=== PATIENT | male | born 1965 | race Two or more races ===

== ENCOUNTER → 2020-05-29 | Outpatient (CLI) | payer OTHER ==
[2020-05-29 08:36] LABS: Urine WBC None Seen /hpf (0 - 3)
[2020-05-29 08:43] LABS: Basophils # (auto) 0 10 ^3/uL (0-0.2); Basophils % (auto) 0.4 % (0.0-2.0); Eosinophils # (auto) 0.1 10 ^3/uL (0-0.8); Eosinophils % (auto) 1.5 % (0.0-7.0); Hemoglobin 14.6 g/dL (13.5-17.5); Lymphocytes # (auto) 1.5 10 ^3/uL (0.4-5.4); Lymphocytes % (auto) 21.1 % (10.0-50.0); Mean Corpuscular Hgb Conc. 35.5 g/dL (32.0-36.0); Mean Corpuscular Volume 92.8 fL (80.0-100.0); Monocytes # (auto) 0.5 10 ^3/uL (0-1.3); Monocytes % (auto) 6.6 % (0.0-12.0); Neutrophils # (auto) 4.8 10 ^3/uL (1.6-8.6); Neutrophils % (auto) 70.4 % (37.0-80.0); Nucleated Red Blood Cells % 0.5 %; Platelet Count (auto) 127 10^3/uL (140-450); Red Blood Cells 4.42 10^6/uL (4.5-5.90); Red Cell Distribution Width 13.9 % (11.8-14.3); White Blood Cell 6.9 10^3/uL (4.4-10.8)
[2020-05-29 08:53] LABS: Urine Bacteria NONE SEEN /hpf (None Seen); Urine Blood Negative /uL (Negative); Urine Specific Gravity 1.019 (1.001-1.035)
[2020-05-29 09:13] LABS: Albumin 3.8 g/dL (3.4-5.0); BUN/Creatinine Ratio 22.2; Calcium 9.1 mg/dL (8.5-10.1); Potassium 4.5 mmol/L (3.5-5.1)
[2020-05-29 09:18] LABS: Bilirubin, Total 0.7 mg/dL (0.2-1.0); Total Protein 7.4 g/dL (6.4-8.2)
== END | disposition home or self-care (01) ==
LOC: LAB 08:23
PROVIDERS: ATTEND Student in an Organized Health Care Education/Training Program
DX: E11.9 Type 2 diabetes mellitus without complications (principal); Z12.11 Encounter for screening for malignant neoplasm of colon
CPT/HCPCS: 36415; 80053; 80061; 81001; 82043; 83036; 84443; 85025

== ENCOUNTER → 2021-03-04 | Outpatient (CLI) | payer OTHER ==
[2021-03-04 08:59] LABS: Basophils # (auto) 0 10 ^3/uL (0-0.2); Basophils % (auto) 0.7 % (0.0-2.0); Eosinophils # (auto) 0.1 10 ^3/uL (0-0.8); Eosinophils % (auto) 1.9 % (0.0-7.0); Hemoglobin 15.5 g/dL (13.5-17.5); Lymphocytes # (auto) 1.1 10 ^3/uL (0.4-5.4); Lymphocytes % (auto) 22.8 % (10.0-50.0); Mean Corpuscular Hemoglobin 31.6 pg (28.0-32.0); Mean Corpuscular Hgb Conc. 35.3 g/dL (32.0-36.0); Mean Corpuscular Volume 89.7 fL (80.0-100.0); Monocytes # (auto) 0.6 10 ^3/uL (0-1.3); Neutrophils # (auto) 3.1 10 ^3/uL (1.6-8.6); Neutrophils % (auto) 62.6 % (37.0-80.0); Nucleated Red Blood Cells % 0.1 %; Red Blood Cells 4.91 10^6/uL (4.5-5.90); Red Cell Distribution Width 13.1 % (11.8-14.3); White Blood Cell 4.9 10^3/uL (4.4-10.8)
[2021-03-04 09:14] LABS: Urine Bacteria NONE SEEN /hpf (None Seen); Urine Blood Negative /uL (Negative); Urine Mucus FEW (None Seen); Urine Specific Gravity 1.019 (1.001-1.035); Urine WBC <1 /hpf (0 - 3)
[2021-03-04 10:12] LABS: Albumin 3.7 g/dL (3.4-5.0); BUN/Creatinine Ratio 20.5; Bilirubin, Total 0.8 mg/dL (0.2-1.0); Calcium 9.2 mg/dL (8.5-10.1); Total Protein 6.9 g/dL (6.4-8.2)
== END | disposition home or self-care (01) ==
LOC: LAB 08:34
PROVIDERS: ATTEND Student in an Organized Health Care Education/Training Program
DX: E11.9 Type 2 diabetes mellitus without complications (principal); I10 Essential (primary) hypertension
CPT/HCPCS: 36415; 80053; 80061; 81001; 82043; 83036; 85025

== ENCOUNTER 2021-07-09 07:37 | Emergency (ER) | payer OTHER ==
[~2021-07-09] VITALS: Ht 180.3 cm; Wt 106.6 kg
[2021-07-09] MEDS ORDERED: METOCLOPRAMIDE HCL 5MG/ml INJ 2ml VIAL IV ONE (08:00)
[2021-07-09] MEDS ORDERED: SODIUM CHLORIDE 0.9% 1,000 ML IV ONE (08:00)
[2021-07-09] MEDS ORDERED: KETOROLAC TROMETH 30 MG/ML 1ML VIAL IV ONE (08:00)
[2021-07-09] MEDS ORDERED: CYCL-837 PO (10:13)
[2021-07-09] MEDS ORDERED: DEX4T PO (10:13)
[2021-07-09] MEDS ORDERED: HYDR-4902 PO (10:13)
[2021-07-09 12:51] VITALS: BP 97/45
== END 2021-07-09 13:20 | disposition home or self-care (01) ==
LOC: ER 07:37
DX: G89.29 Other chronic pain (principal); M54.59 Other low back pain; M79.10 Myalgia, unspecified site; I10 Essential (primary) hypertension; E11.9 Type 2 diabetes mellitus without complications; E78.5 Hyperlipidemia, unspecified; F17.210 Nicotine dependence, cigarettes, uncomplicated; W01.0XXA Fall on same level from slipping, tripping and stumbling without subsequent striking against object, initial encounter; Y93.89 Activity, other specified; Y92.89 Other specified places as the place of occurrence of the external cause; Y99.8 Other external cause status
CPT/HCPCS: 72100; 96361; 96374; 96375; 99285; J1885; J2765; J7030

== ENCOUNTER 2021-07-17 15:36 | Inpatient (IN) | payer OTHER ==
[~2021-07-17] VITALS: Ht 180.3 cm; Wt 111.1 kg
[~2021-07-17 15:36] MED LIST: CYCL-837 PO; DEX4T PO; HYDR-4902 PO
[2021-07-17] MEDS ORDERED: HEPARIN SODIUM (PORCINE) 5000 UNITS/ML 1ML VIAL IV ONE (18:00)
[2021-07-17 18:51] LABS: Basophils # (auto) 0 10 ^3/uL (0-0.2); Basophils % (auto) 0.2 % (0.0-2.0); Eosinophils # (auto) 0.1 10 ^3/uL (0-0.8); Eosinophils % (auto) 1.3 % (0.0-7.0); Hemoglobin 16.9 g/dL (13.5-17.5); Lymphocytes # (auto) 1.7 10 ^3/uL (0.4-5.4); Lymphocytes % (auto) 16.6 % (10.0-50.0); Mean Corpuscular Hemoglobin 32.1 pg (28.0-32.0); Mean Corpuscular Hgb Conc. 35.2 g/dL (32.0-36.0); Mean Corpuscular Volume 91.4 fL (80.0-100.0); Monocytes # (auto) 0.9 10 ^3/uL (0-1.3); Monocytes % (auto) 8.3 % (0.0-12.0); Neutrophils # (auto) 7.7 10 ^3/uL (1.6-8.6); Neutrophils % (auto) 73.6 % (37.0-80.0); Nucleated Red Blood Cells % 0.1 %; Red Blood Cells 5.25 10^6/uL (4.5-5.90); White Blood Cell 10.5 10^3/uL (4.4-10.8)
[2021-07-17 18:59] LABS: Albumin 3.4 g/dL (3.4-5.0); BUN/Creatinine Ratio 22.7; Calcium 8.7 mg/dL (8.5-10.1); Potassium 4.1 mmol/L (3.5-5.1)
[2021-07-17] MEDS ORDERED: HEPARIN DRIP/D5W 100UNITS/ML 250 ML IV SCH (19:00)
[2021-07-17 19:02] LABS: Total Protein 7.4 g/dL (6.4-8.2)
[2021-07-17 19:20] LABS: INR 1.05 (0.9-1.15); Partial Thromboplastin Time 26.2 sec (23.6-33.0)
[2021-07-17] MEDS ORDERED: SODIUM CHLORIDE 0.9% 1,000 ML IV SCH (22:00)
[2021-07-17] MEDS ORDERED: ACETAMINOPHEN 325 MG TAB PO PRN (22:00)
[2021-07-17] MEDS ORDERED: ONDANSETRON HCL 4 MG/2 ML VIAL IV PRN (22:00)
[2021-07-17] MEDS ORDERED: DOCUSATE SOD 100 MG CAP PO PRN (22:00)
[2021-07-17] MEDS: HYDROcodone-ACET 5/325MG TAB PO PRN (23:05)
[2021-07-17] MEDS ORDERED: MORPHINE SULFATE INJ 2 MG/ml SYRG IV PRN (23:45)
[2021-07-17] MEDS ORDERED: NITROGLYCERIN 0.4 MG SL TAB SL PRN (23:45)
[2021-07-18 05:24] LABS: Basophils # (auto) 0 10 ^3/uL (0-0.2); Basophils % (auto) 0.1 % (0.0-2.0); Eosinophils # (auto) 0.1 10 ^3/uL (0-0.8); Eosinophils % (auto) 1.5 % (0.0-7.0); Hematocrit 41.4 % (41.0-53.0); Hemoglobin 14.8 g/dL (13.5-17.5); Lymphocytes # (auto) 1.5 10 ^3/uL (0.4-5.4); Lymphocytes % (auto) 22.1 % (10.0-50.0); Mean Corpuscular Hemoglobin 32.2 pg (28.0-32.0); Mean Corpuscular Hgb Conc. 35.7 g/dL (32.0-36.0); Mean Corpuscular Volume 90.1 fL (80.0-100.0); Monocytes # (auto) 0.7 10 ^3/uL (0-1.3); Monocytes % (auto) 10.2 % (0.0-12.0); Neutrophils # (auto) 4.6 10 ^3/uL (1.6-8.6); Neutrophils % (auto) 66.1 % (37.0-80.0); Red Cell Distribution Width 13.8 % (11.8-14.3)
[2021-07-18 05:31] LABS: Calcium 8.1 mg/dL (8.5-10.1); Potassium 3.7 mmol/L (3.5-5.1)
[2021-07-18 05:34] LABS: BUN/Creatinine Ratio 28.1; Bilirubin, Total 0.8 mg/dL (0.2-1.0); Total Protein 6.5 g/dL (6.4-8.2)
[2021-07-18] MEDS ORDERED: DEXTROSE (50%) 50ML SYRG IV PRN (09:45)
[2021-07-18] MEDS ORDERED: HEPARIN SODIUM (PORCINE) 5000 UNITS/ML 1ML VIAL SC SCH (10:00)
[2021-07-18] MEDS: ACCU-CHEK COMFORT CURVE STRIP VI SCH ×4 (12:13→23:07)
[2021-07-18] MEDS: InsuLIN REG 1unit/0.01ml Soln (100units/ml) SC SCH ×3 (12:44→22:00)
[2021-07-18 13:00] VITALS: BP 134/86
[2021-07-18] MEDS ORDERED: APIXABAN 5 MG TAB PO SCH (15:34)
[2021-07-18 17:00] VITALS: BP 138/76
[2021-07-18] MEDS: APIXABAN 5 MG TAB PO SCH (18:34)
[2021-07-18 22:00] VITALS: BP 118/63
[2021-07-19] MEDS: HYDROcodone-ACET 5/325MG TAB PO PRN ×2 (00:49→21:57)
[2021-07-19 05:00] VITALS: BP 119/76
[2021-07-19] MEDS: APIXABAN 5 MG TAB PO SCH ×2 (06:00→17:20)
[2021-07-19 06:50] LABS: Calcium 8.7 mg/dL (8.5-10.1); Magnesium 2.5 mg/dL (1.6-2.6); Potassium 3.7 mmol/L (3.5-5.1)
[2021-07-19] MEDS: InsuLIN REG 1unit/0.01ml Soln (100units/ml) SC SCH ×4 (06:54→21:48)
[2021-07-19 06:56] LABS: BUN/Creatinine Ratio 23.1
[2021-07-19] MEDS: ACCU-CHEK COMFORT CURVE STRIP VI SCH ×4 (06:56→21:59)
[2021-07-19] MEDS ORDERED: ATOR-47 PO (07:26)
[2021-07-19] MEDS ORDERED: METF-371 PO (07:26)
[2021-07-19] MEDS ORDERED: LISI20TA28 PO (07:26)
[2021-07-19] MEDS ORDERED: GLIP5TAB12 PO (07:26)
[2021-07-19] MEDS ORDERED: ASPI-543 PO (07:27)
[2021-07-19] MEDS ORDERED: OMEG306C OR (07:27)
[2021-07-19 08:38] LABS: Basophils # (auto) 0.1 10 ^3/uL (0-0.2); Basophils % (auto) 1.2 % (0.0-2.0); Eosinophils # (auto) 0.1 10 ^3/uL (0-0.8); Eosinophils % (auto) 1.8 % (0.0-7.0); Hematocrit 40.4 % (41.0-53.0); Lymphocytes # (auto) 1.7 10 ^3/uL (0.4-5.4); Lymphocytes % (auto) 20.9 % (10.0-50.0); Mean Corpuscular Hemoglobin 32.7 pg (28.0-32.0); Mean Corpuscular Volume 89.9 fL (80.0-100.0); Monocytes # (auto) 0.9 10 ^3/uL (0-1.3); Monocytes % (auto) 10.8 % (0.0-12.0); Neutrophils # (auto) 5.2 10 ^3/uL (1.6-8.6); Neutrophils % (auto) 65.3 % (37.0-80.0); Nucleated Red Blood Cells % 0.1 %; Red Cell Distribution Width 13.7 % (11.8-14.3); White Blood Cell 7.9 10^3/uL (4.4-10.8)
[2021-07-19 08:42] LABS: Hemoglobin 13.7 g/dL (13.5-17.5)
[2021-07-19 09:12] VITALS: BP 135/86
[2021-07-19 12:54] VITALS: BP 134/83
[2021-07-19 17:00] VITALS: BP 143/98
[2021-07-19] MEDS: glipiZIDE 5 MG TAB PO SCH (17:20)
[2021-07-19 22:00] VITALS: BP 128/71
[2021-07-20 05:00] VITALS: BP 110/67
[2021-07-20] MEDS: HYDROcodone-ACET 5/325MG TAB PO PRN ×2 (05:20→22:32)
[2021-07-20] MEDS: InsuLIN REG 1unit/0.01ml Soln (100units/ml) SC SCH ×4 (06:29→22:29)
[2021-07-20] MEDS: ACCU-CHEK COMFORT CURVE STRIP VI SCH ×4 (06:33→22:00)
[2021-07-20] MEDS: APIXABAN 5 MG TAB PO SCH ×2 (06:33→17:36)
[2021-07-20] MEDS: glipiZIDE 5 MG TAB PO SCH ×2 (06:47→17:36)
[2021-07-20 07:18] LABS: Basophils # (auto) 0.1 10 ^3/uL (0-0.2); Basophils % (auto) 0.8 % (0.0-2.0); Eosinophils # (auto) 0.1 10 ^3/uL (0-0.8); Eosinophils % (auto) 1.5 % (0.0-7.0); Hematocrit 39.9 % (41.0-53.0); Lymphocytes # (auto) 1.4 10 ^3/uL (0.4-5.4); Lymphocytes % (auto) 15.8 % (10.0-50.0); Mean Corpuscular Hemoglobin 32.7 pg (28.0-32.0); Mean Corpuscular Volume 89.3 fL (80.0-100.0); Monocytes # (auto) 0.8 10 ^3/uL (0-1.3); Monocytes % (auto) 9.2 % (0.0-12.0); Neutrophils # (auto) 6.5 10 ^3/uL (1.6-8.6); Neutrophils % (auto) 72.7 % (37.0-80.0); Nucleated Red Blood Cells % 0.2 %; Red Blood Cells 4.46 10^6/uL (4.5-5.90); Red Cell Distribution Width 13.7 % (11.8-14.3); White Blood Cell 8.9 10^3/uL (4.4-10.8)
[2021-07-20 07:26] LABS: Hemoglobin 13.3 g/dL (13.5-17.5)
[2021-07-20 09:11] VITALS: BP 141/83
[2021-07-20 13:00] VITALS: BP 127/84
[2021-07-20 17:00] VITALS: BP 141/84
[2021-07-20 22:00] VITALS: BP 142/76
[2021-07-21] MEDS: HYDROcodone-ACET 5/325MG TAB PO PRN ×3 (03:43→15:39)
[2021-07-21 05:00] VITALS: BP 147/72
[2021-07-21] MEDS: InsuLIN REG 1unit/0.01ml Soln (100units/ml) SC SCH ×2 (06:29→11:30)
[2021-07-21] MEDS: APIXABAN 5 MG TAB PO SCH (06:31)
[2021-07-21] MEDS: glipiZIDE 5 MG TAB PO SCH (06:31)
[2021-07-21] MEDS: ACCU-CHEK COMFORT CURVE STRIP VI SCH ×2 (06:31→11:38)
[2021-07-21 09:00] VITALS: BP 134/81
[2021-07-21] MEDS ORDERED: APIX5TAB4 PO (12:39)
[2021-07-21] MEDS ORDERED: CHOL20007 PO (12:44)
[2021-07-25] MEDS ORDERED: APIXABAN 5 MG TAB PO SCH ×2 (10:00→18:00)
== END 2021-07-21 16:30 | disposition home or self-care (01) | DRG 301 ==
LOC: ER 15:36 → TELE 23:42 → TELE-CENTR 07-18 08:40
PROVIDERS: ADMIT Nurse Practitioner Family; ATTEND Internal Medicine
DX: I82.412 Acute embolism and thrombosis of left femoral vein (principal); I82.442 Acute embolism and thrombosis of left tibial vein; D69.6 Thrombocytopenia, unspecified; E11.65 Type 2 diabetes mellitus with hyperglycemia; E55.9 Vitamin D deficiency, unspecified; E78.5 Hyperlipidemia, unspecified; F17.210 Nicotine dependence, cigarettes, uncomplicated; Z20.822 Contact with and (suspected) exposure to COVID-19; I10 Essential (primary) hypertension; N28.9 Disorder of kidney and ureter, unspecified; Z79.01 Long term (current) use of anticoagulants; Z80.3 Family history of malignant neoplasm of breast; Z80.8 Family history of malignant neoplasm of other organs or systems
CPT/HCPCS: 36415; 71045; 80048; 80053; 80061; 82306; 82962; 83036; 83735; 83880; 84484; 85025; 85610; 85730; 86850; 86900; 86901; 93005; 93971; 96365; 96376; G0378; J1815

== ENCOUNTER 2021-07-29 18:58 | Emergency (ER) | payer OTHER ==
[~2021-07-29] VITALS: Ht 180.3 cm; Wt 104.3 kg
[~2021-07-29 18:58] MED LIST changes: +APIX5TAB4 PO; +ATOR-47 PO; +CHOL20007 PO; +GLIP5TAB12 PO; +LISI20TA28 PO; +METF-371 PO; +OMEG306C OR
[2021-07-29 19:05] VITALS: BP 136/89
== END 2021-07-29 20:53 | disposition left against medical advice (07) ==
LOC: ER 18:58 → EDBD 18:58 → ER 20:53
DX: M79.605 Pain in left leg (principal); M79.89 Other specified soft tissue disorders; Z53.21 Procedure and treatment not carried out due to patient leaving prior to being seen by health care provider

== ENCOUNTER → 2022-05-13 | Outpatient (CLI) | payer OTHER ==
[~2022-05-13] MED LIST changes: -CHOL20007 PO
[2022-05-13 09:20] LABS: Basophils # (auto) 0 10 ^3/uL (0-0.2); Basophils % (auto) 0.3 % (0.0-2.0); Eosinophils # (auto) 0.1 10 ^3/uL (0-0.8); Eosinophils % (auto) 1.1 % (0.0-7.0); Hematocrit 46.7 % (41.0-53.0); Hemoglobin 16.1 g/dL (13.5-17.5); Lymphocytes # (auto) 1.8 10 ^3/uL (0.4-5.4); Lymphocytes % (auto) 25.8 % (10.0-50.0); Mean Corpuscular Hemoglobin 32.1 pg (28.0-32.0); Mean Corpuscular Hgb Conc. 34.5 g/dL (32.0-36.0); Mean Corpuscular Volume 92.8 fL (80.0-100.0); Monocytes # (auto) 0.5 10 ^3/uL (0-1.3); Monocytes % (auto) 7.4 % (0.0-12.0); Neutrophils # (auto) 4.6 10 ^3/uL (1.6-8.6); Neutrophils % (auto) 65.4 % (37.0-80.0); Nucleated Red Blood Cells % 0.1 %; Red Blood Cells 5.03 10^6/uL (4.5-5.90); Red Cell Distribution Width 13.4 % (11.8-14.3)
[2022-05-13 09:51] LABS: Urine Bacteria NONE SEEN /hpf (None Seen); Urine Blood Negative /uL (Negative); Urine Specific Gravity 1.019 (1.001-1.035); Urine WBC 1 /hpf (0 - 3)
[2022-05-13 10:42] LABS: Albumin 3.8 g/dL (3.4-5.0); BUN/Creatinine Ratio 25.3; Bilirubin, Total 0.5 mg/dL (0.2-1.0); Calcium 9.1 mg/dL (8.5-10.1); Potassium 4.1 mmol/L (3.5-5.1); Total Protein 7.5 g/dL (6.4-8.2)
== END | disposition home or self-care (01) ==
LOC: LAB 09:04
PROVIDERS: ATTEND Nurse Practitioner
DX: I10 Essential (primary) hypertension (principal); E78.5 Hyperlipidemia, unspecified; E11.9 Type 2 diabetes mellitus without complications
CPT/HCPCS: 36415; 80053; 80061; 81001; 82043; 83036; 84443; 85025